=== PATIENT | female | born 1960 | race Caucasian/White ===

== ENCOUNTER → 2018-07-28 14:19 | Outpatient (CLI) | payer BC, MEDICARE ==
[2012-12-07 07:34] VITALS: BMI 25.1
[~2018-07-28 14:19] MED LIST: DURAGESIC1 PATCH .1; EFFEXOR XR150 MG PO; NEURONTIN 400400 MG PO; NORCO 7.5-3251 EACH; ROBAXIN-750750 MG PO; ZESTRIL20 MG PO; [UNRECOGNIZED DRUG - OTHER]
== END | disposition home or self-care (01) ==
LOC: D.MRI 14:19
PROVIDERS: ATTEND Orthopaedic Surgery
DX: S83.231A Complex tear of medial meniscus, current injury, right knee, initial encounter (principal)

== ENCOUNTER 2018-08-11 09:45 | Day surgery (SDC) | payer BC, MEDICARE ==
[2018-08-10 14:25] LABS: HEMATOCRIT 40.3 % (36.0-48.0); HEMOGLOBIN 13.6 g/dL (12-16); MCH 29.4 pg (26.0-34.0); MCHC 33.7 g/dL (31.0-37.0); MEAN PLATELET VOLUME 9.6 fL (7.4-10.4); RBC 4.63 10x6/uL (4.00-5.40); RDW 13.1 % (11.5-14.5); WBC 5.8 10x3/uL (4.8-10.8)
[~2018-08-11] VITALS: Ht 172.7 cm; Wt 99.8 kg
[~2018-08-11 09:45] MED LIST changes: +ALBUTEROL SULF8.5 GM INH; +BISOPROLOL FUMARATE PO; +BUPRENORPHINE HC8 MG SL; +BUSPIRONE HCL7.5 MG PO; +ESTERIFIED ESTROGENS; +NEURONTIN 300300 MG PO; -NEURONTIN 400400 MG PO; +PROTONIX40 MG PO; -ROBAXIN-750750 MG PO; +ROBAXIN500 MG PO; +ZOLOFT100 MG PO
[2018-08-11 10:16] VITALS: BP 118/72; Ht 172.7 cm; Wt 99.8 kg
[2018-08-11] MEDS ORDERED: HYDROCODON-ACE1 EA10 PO (11:47)
--- NOTE | 2018-08-18 11:33 | OP ---
PATIENT NAME: KEVIN CARD MEDICAL RECORD: [id number] :62 LOCATION:[facility] ADMISSION DATE: SURGEON: JENNIFER CADE MD DATE OF OPERATION: 08/11/2018 PREOPERATIVE DIAGNOSIS: Lateral meniscus tear of the left knee. POSTOPERATIVE DIAGNOSIS: Lateral meniscus tear of the left knee. PROCEDURE: Arthroscopic subtotal lateral meniscectomy. SURGEON: Jennifer Cade MD ANESTHESIA: General. INTRAOPERATIVE COMPLICATIONS: None. SUMMARY OF PATHOLOGIC FINDINGS: The patient did have a bucket-handle tear of the lateral meniscus. OPERATIVE SUMMARY IN DETAIL: After obtaining appropriate preoperative orthopedic surgery consent as well as anesthetic consultation, evaluation, and clearance, the patient was brought to the operating room and placed on the operating table in supine position. After general laryngeal mask airway was administered, tourniquet was placed about the proximal aspect of the left lower extremity. Left lower extremity was then prepped and draped in routine sterile fashion. The leg was elevated and exsanguinated, tourniquet inflated to 350 mmHg. Routine inferolateral portal was established, followed by superomedial portal and inferomedial portal. Diagnostic arthroscopy did indeed show the patient to have a bucket-handle lateral meniscus tear. The bucket-handle lateral meniscus tear was taken down primarily with the arthroscopic resector and with a good transition zone made at the 9 o'clock and basically 11:30 position, minimal amount of osteoarticular damage was noted. At this point, the knee was insufflated with 30 mL of 0.25% Marcaine with epinephrine and 40 mg of Depo-Medrol. Arthroscopy portals were closed in routine interrupted fashion using 4-0 Prolene. Sterile dressings were applied. Tourniquet was deflated. The patient was awakened, taken to recovery room in stable condition. All final needle and sponge counts were correct. TRANSINT:[id number] Voice Confirmation ID: [id number] DOCUMENT ID: [id number] RAYO CRENSHAW, JENNIFER DE LA PAZ at 1133 CC: [id number] DICTATION DATE: 08/17/18 1724 [employer] PRESIDENT/PRACTICE OWNER: 08/18/18 0310 [facility] 08/11/18 [place] [address]
== END 2018-08-11 14:05 | disposition home or self-care (01) ==
LOC: D.OPS 09:45 → D.PAN 11:45 → D.OPS 14:05 → D.PAN 14:05 → D.OPS 14:15 → D.PAN 14:15
PROVIDERS: Anesthesiology; ATTEND Orthopaedic Surgery
DX: S83.252A Bucket-handle tear of lateral meniscus, current injury, left knee, initial encounter (principal); X58.XXXA Exposure to other specified factors, initial encounter; Z01.812 Encounter for preprocedural laboratory examination

== ENCOUNTER → 2018-10-28 09:41 | Outpatient (CLI) | payer BC, MEDICARE ==
[2018-08-11 10:16] VITALS: BMI 33.5
[~2018-10-28 09:41] MED LIST changes: +HYDROCODON-ACE1 EA10 PO
== END | disposition home or self-care (01) ==
LOC: D.MRI 09:41
PROVIDERS: ATTEND Orthopaedic Surgery
DX: S83.231A Complex tear of medial meniscus, current injury, right knee, initial encounter (principal)

== ENCOUNTER → 2019-09-27 12:45 | Outpatient (CLI) | payer BC, MEDICARE ==
[2018-08-11 10:16] VITALS: BMI 33.5
== END | disposition home or self-care (01) ==
LOC: D.MRI 12:45
PROVIDERS: ATTEND Orthopaedic Surgery
DX: S80.11XA Contusion of right lower leg, initial encounter (principal)

== ENCOUNTER 2020-11-02 01:36 | Emergency (ER) | payer BC, MEDICARE ==
[~2020-11-02] VITALS: Ht 172.7 cm; Wt 91.4 kg
[2020-11-02 01:40] VITALS: Ht 172.7 cm; Wt 91.4 kg
[2020-11-02 03:01] VITALS: BP 121/64
== END 2020-11-02 02:33 | disposition home or self-care (01) ==
LOC: D.ER 01:36
DX: S20.219A Contusion of unspecified front wall of thorax, initial encounter (principal); I10 Essential (primary) hypertension; J44.9 Chronic obstructive pulmonary disease, unspecified; K21.9 Gastro-esophageal reflux disease without esophagitis; Y04.2XXA Assault by strike against or bumped into by another person, initial encounter; Y93.9 Activity, unspecified; Y92.9 Unspecified place or not applicable